=== PATIENT | female | born 1980 | race Caucasian/White ===

== ENCOUNTER 2018-10-10 16:07 | Emergency (ER) | payer OTHER ==
[2018-10-10 16:32] VITALS: BP 144/51
[2018-10-10] MEDS ORDERED: traMADol TAB* 50 MG PO ONE (16:35)
--- NOTE | 2018-10-10 16:40 | UC ---
Abdominal Pain Female HPI - HPI Summary HPI Summary: started w/ LLQ pain yesterday, slowly worsening. Denies any changes in stool, blood in urine, or n/v. 08/04/18 had laparoscopic surg for endometriosis, no complications. - History of Current Complaint Chief Complaint: UCAbdominalPain Stated Complaint: ABDOMINAL PAIN Hx Obtained From: Patient Hx Last Menstrual Period: 09/07/2018 Onset/Duration: Sudden Onset Pain Intensity: 10 Pain Scale Used: 0-10 Numeric Location: Discrete At: LLQ Radiates to: Flank Character: Aching, Sharp Aggravating Factor(s): Nothing Alleviating Factor(s): Nothing, OTC Analgesics - tried ibu but no relief. Associated Signs and Symptoms: Positive: Dizzy. Negative: Diaphoresis, Fever, Cough, Blood in Stool, Nausea, Vomiting Allergies/Adverse Reactions: Allergies Allergy/AdvReac Type Severity Reaction Status Date / Time amoxicillin Allergy Hives Verified 10/10/18 17:42 aspirin Allergy See Comment Verified 10/10/18 17:42 Estrogens Allergy Swelling Verified 10/10/18 17:42 Penicillins Allergy Hives Verified 10/10/18 17:42 LATEX Allergy Swelling Uncoded 10/10/18 17:42 P[place] TREE Allergy See Comment Uncoded 10/10/18 17:42 PINE TREES Allergy NOSE BLEEDS Uncoded 10/10/18 17:42 Home Medications: Home Medications Bcp 1 tab PO DAILY 10/10/18 [History] Ibuprofen TAB* [Motrin TAB* 800 MG] 800 mg PO Q6H 10/10/18 [History Confirmed ] PMH/Surg Hx/FS Hx/Imm Hx - Additional Past Medical History Additional PMH: endometriosis Previously Healthy: Yes - Surgical History Surgical History: Yes Surgery Procedure, Year, and Place: 2011-ELBOW NERVE SURGERY-LEFT. 2012- RIGHT ELBOW SURGERY. August 07 - Laprascopic adominal surgery Sep - Family History Known Family History: Positive: Hypertension, Respiratory Disease - Social History Alcohol Use: Occasionally Substance Use Type: None Smoking Status (MU): Heavy Every Day Tobacco Smoker Type: Cigarettes Amount Used/How Often: 1/2 PPD Review of Systems All Other Systems Reviewed And Are Negative: Yes Constitutional: Positive: Negative. Negative: Fever, Chills Gastrointestinal: Positive: Abdominal Pain. Negative: Vomiting, Diarrhea, Nausea Genitourinary: Negative: Dysuria Neurological: Positive: Other - dizzy w/ pain. Negative: Headache, Weakness Physical Exam Triage Information Reviewed: Yes Appearance: Pain Distress Vital Signs: Initial Vital Signs Temp 99.2 F 10/10/18 16:29 Pulse 90 10/10/18 16:29 Resp 18 10/10/18 16:29 BP 144/51 10/10/18 16:29 Pulse Ox 100 10/10/18 16:29 Vital Signs Reviewed: Yes Neck: Positive: Supple, Nontender, No Lymphadenopathy Respiratory Exam: Normal Cardiovascular Exam: Normal Abdomen Description: Positive: Nontender, Soft. Negative: CVA Tenderness (R), CVA Tenderness (L), Distended, Guarding, Pulsatile Mass Neurological: Positive: Alert Skin: Negative: Rashes Abd Pain Female Course/Dx - Course Course Of Treatment: LLQ pain but no acute abdomen. OF note she has laparoscopic surgery in 08/2018 for endometriosis, no complications. Given degree of pain she is being sent to ED for disla evaluation. Vitals good, urine hcg neg today. She is not tachycardic and we should r/o other etiologies. - Differential Dx/Diagnosis Differential Diagnosis: Diverticulitis, Ovarian Cyst, Urinary Tract Infection, Other - tubal Provider Diagnosis: Left lower quadrant pain Discharge - Sign-Out/Discharge Documenting (check all that apply): Patient Departure All imaging exams completed and their final reports reviewed: No Studies - Discharge Plan Condition: Good Disposition: HOME-RECOMMEND TO ED Patient Education Materials: Acute Abdominal Pain (ED) Forms: *Work Release Referrals: Fany Tracy NP [Primary Care Provider] - Additional Instructions: Because we cannot rule out all the causes of your pain I strongly recommend you go to the ED for disla evaluation. - Billing Disposition and Condition Condition: GOOD Disposition: Home-Recommend to ED
== END 2018-10-10 17:05 | disposition home health service (06) ==
LOC: UCEAST 16:07
DX: R10.32 Left lower quadrant pain (principal); R42 Dizziness and giddiness; F17.210 Nicotine dependence, cigarettes, uncomplicated; Z88.0 Allergy status to penicillin; Z88.8 Allergy status to other drugs, medicaments and biological substances; Z91.040 Latex allergy status; Z91.09 Other allergy status, other than to drugs and biological substances
CPT/HCPCS: 84702; 99212; A9270-GY; G0463

== ENCOUNTER 2018-10-10 17:28 | Emergency (ER) | payer OTHER ==
--- OUTSIDE RECORDS SUMMARY | 2018-10-10 17:50 | XMS REPORT | Continuity of Care Document ---
:1980 External Reference #:[id number] Author Name Catie Browne Care Team Providers Name Role Phone Siva Dorado III, MD Primary Care Physician Unavailable Payers Type Date Identification Numbers Payment Provider Subscriber Policy Number: [id number] [facility] Ev Song PayID: [id number] [address] [place] [address] Effective: 2010 Policy Number: [id number] [facility] Ev Song Onset: 2010 Group Number: [id number] [address] [address] PayID: [place] [address] Expires: 2016 Policy Number: [id number] [facility] Ev Song Onset: 2010 Group Number: [id number] [address] [address] PayID: [place] [address] Advance Directives Description No Information Available Problems Date Description Provider Status Onset: 10/07/2018 Lesion of ulnar nerve Janak Myrick M.D. Active Onset: 07/18/2018 Dizziness and giddiness Janak Myrick M.D. Active Onset: 07/18/2018 Skin sensation disturbance Janak Myrick M.D. Active Onset: 07/18/2018 Headache Janak Myrick M.D. 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 (10 or fewer Began age 18 cigarettes/day) Smoking Status Reviewed: 10/07/18 Light tobacco smoker 1/2 ppd; max 1 ppd. (10 or fewer Began age 18 cigarettes/day) Exercise Exercises sporadically Type/Frequency Allergies, Adverse Reactions, Alerts Date Description Reaction Status Severity Comments 09/06/2017 Penicillins Active hives 09/06/2017 Aspirin Active nose bleeds 09/06/2017 Latex Active swelling 08/04/2013 NKDA Inactive Medications Medication Date Status Form Strength Qnty SIG Indications Ordering Provider Proair HFA Active Aerosol 108(90Base 1units 2 puffs J06.9 Siva E. 018 ) mcg/Act by candice Dorado four Hesham times a day as needed Ibuprofen Active Tablets 800mg 100tab 1 by Ev 014 s candice Porter M.D. three times a day as needed Tylenol Active Tablets 325mg as needed Unknown 000 Diclofenac Hx Tablets 50mg 60tabs take one G56.22 Ev Sodium 016 - DR tablet by Hesham Porter mouth 017 twice a day Electrode Pads Hx 50unit Ev For TENS Unit 014 - radha Porter M.D. 018 Tramadol Hx Tablets 37.5-325mg 30tabs 1-2 Ev Hydrochloride/ 014 - tablets Hesham Porter Acetaminophen every 6 018 hours as needed pain No Active Hx Unknown Medications 013 - 014 Arrey Hx Tablets 5-325mg 30tabs 1-2 po Ev 013 - q4-6 prn Hesham Porter pain 013 No Active Hx Unknown Medications 013 - 013 Medications Administered in Office Medication Date Status Form Strength Qnty SIG Indications Ordering Provider Depomedrol Administered Injection Janee 40MG 017 Bitting, RPA-C Depomedrol Administered Injection Ev 40MG Jeancarlos Porter M.D. Depomedrol Administered Injection Ev 40MG Jeancarlos Porter M.D. Depomedrol Administered Injection Ev 80MG 015 Hesham Porter Depomedrol Administered Injection Ev 80MG 015 Hesham Porter Depomedrol Administered Injection Ev 80MG 015 Hesham Porter Immunizations Description No Information Available Vital Signs Date Vital Result Comment 10/07/2018 8:01am Height 63 inches 5'3" Weight 130.38 lb Heart Rate 72 /min BP Systolic 124 mmHg BP Diastolic 74 mmHg BMI (Body Mass Index) 23.1 kg/m2 07/18/2018 8:12am Height 63 inches 5'3" Weight 134.00 lb BP Systolic 126 mmHg BP Diastolic 88 mmHg BMI (Body Mass Index) 23.7 kg/m2 11/07/2017 8:04am Height 63 inches 5'3" Weight 132.00 lb Heart Rate 73 /min Respiratory Rate 15 /min Pain Level 6 BMI (Body Mass Index) 23.4 kg/m2 09/20/2017 7:55am Height 63 inches 5'3" Weight 128.00 lb Heart Rate 62 /min Respiratory Rate 14 /min Body Temperature 98.5 F Pain Level 3 BMI (Body Mass Index) 22.7 kg/m2 09/06/2017 3:24pm Height 63 inches 5'3" Weight 128.00 lb Heart Rate 53 /min BP Systolic Sitting 115 mmHg BP Diastolic Sitting 75 mmHg Body Temperature 98.6 F O2 % BldC Oximetry 98 % BMI (Body Mass Index) 22.7 kg/m2 08/09/2017 8:03am Height 63 inches 5'3" Weight 135.00 lb BP Systolic 118 mmHg BP Diastolic 70 mmHg Body Temperature 98.1 F Pain Level 4 BMI (Body Mass Index) 23.9 kg/m2 06/28/2017 8:01am Height 63 inches 5'3" Weight 135.00 lb Heart Rate 68 /min BP Systolic 114 mmHg BP Diastolic 68 mmHg Body Temperature 98.6 F Pain Level 5 BMI (Body Mass Index) 23.9 kg/m2 05/17/2017 3:40pm Height 63 inches 5'3" Weight 135.00 lb Respiratory Rate 14 /min Pain Level 4 BMI (Body Mass Index) 23.9 kg/m2 04/05/2017 8:11am Height 63 inches 5'3" Weight 135.00 lb Heart Rate 64 /min BP Systolic 110 mmHg BP Diastolic 74 mmHg Body Temperature 97.9 F Pain Level 4 BMI (Body Mass Index) 23.9 kg/m2 02/22/2017 11:28am Height 63 inches 5'3" Weight 139.00 lb BP Systolic 130 mmHg BP Diastolic 84 mmHg Body Temperature 98.4 F Pain Level 6 BMI (Body Mass Index) 24.6 kg/m2 01/11/2017 3:31pm Height 63 inches 5'3" Weight 139.00 lb Heart Rate 67 /min BP Systolic 133 mmHg BP Diastolic 84 mmHg Body Temperature 98.6 F BMI (Body Mass Index) 24.6 kg/m2 11/29/2016 3:29pm Height 63 inches 5'3" Weight 139.00 lb Heart Rate 72 /min BP Systolic 100 mmHg BP Diastolic 72 mmHg Respiratory Rate 16 /min Pain Level 7 BMI (Body Mass Index) 24.6 kg/m2 10/11/2016 2:56pm Height 63 inches 5'3" Weight 139.00 lb weighed today Heart Rate 64 /min BP Systolic 119 mmHg BP Diastolic 82 mmHg Respiratory Rate 16 /min Pain Level 3 BMI (Body Mass Index) 24.6 kg/m2 08/30/2016 1:24pm Height 63 inches 5'3" Weight 126.00 lb Heart Rate 60 /min BP Systolic 120 mmHg BP Diastolic 75 mmHg BMI (Body Mass Index) 22.3 kg/m2 07/20/2016 8:14am Height 63 inches 5'3" Weight 126.00 lb Pain Level 5 BMI (Body Mass Index) 22.3 kg/m2 06/08/2016 1:11pm Height 63 inches 5'3" Weight 126.00 lb BP Systolic Sitting 126 mmHg BP Diastolic Sitting 78 mmHg BMI (Body Mass Index) 22.3 kg/m2 05/03/2016 3:16pm Height 63 inches 5'3" Weight 124.00 lb Pain Level 4 BMI (Body Mass Index) 22.0 kg/m2 03/20/2016 8:49am Height 63 inches 5'3" Weight 124.00 lb Pain Level 4 BMI (Body Mass Index) 22.0 kg/m2 02/02/2016 4:12pm Height 63 inches 5'3" Weight 124.00 lb Heart Rate 60 /min BP Systolic Sitting 116 mmHg BP Diastolic Sitting 70 mmHg Respiratory Rate 16 /min Pain Level 4 BMI (Body Mass Index) 22.0 kg/m2 12/22/2015 4:16pm Height 63 inches 5'3" Weight 124.00 lb Respiratory Rate 16 /min Pain Level 1 BMI (Body Mass Index) 22.0 kg/m2 11/17/2015 4:25pm Height 63 inches 5'3" Weight 129.00 lb Pain Level 4 BMI (Body Mass Index) 22.8 kg/m2 10/07/2015 4:17pm Height 63.25 inches 5'3.25" Weight 129.00 lb Pain Level 6 BMI (Body Mass Index) 22.7 kg/m2 07/21/2015 3:55pm Heart Rate 68 /min BP Systolic Sitting 136 mmHg BP Diastolic Sitting 84 mmHg 06/09/2015 8:54am Heart Rate 80 /min BP Systolic Sitting 128 mmHg BP Diastolic Sitting 78 mmHg 04/28/2015 9:08am Heart Rate 68 /min BP Systolic Sitting 124 mmHg BP Diastolic Sitting 78 mmHg 03/17/2015 8:58am Heart Rate 64 /min BP Systolic Sitting 128 mmHg BP Diastolic Sitting 82 mmHg 02/03/2015 8:51am Heart Rate 76 /min BP Systolic Sitting 124 mmHg BP Diastolic Sitting 84 mmHg 12/23/2014 8:46am Heart Rate 68 /min BP Systolic Sitting 124 mmHg BP Diastolic Sitting 72 mmHg 11/18/2014 9:04am Heart Rate 78 /min BP Systolic Sitting 122 mmHg BP Diastolic Sitting 78 mmHg 10/07/2014 3:51pm Heart Rate 78 /min BP Systolic Sitting 120 mmHg BP Diastolic Sitting 78 mmHg 08/26/2014 11:10am Heart Rate 81 /min BP Systolic Sitting 128 mmHg BP Diastolic Sitting 80 mmHg 07/08/2014 3:49pm Heart Rate 70 /min BP Systolic Sitting 122 mmHg BP Diastolic Sitting 76 mmHg 06/03/2014 3:51pm Heart Rate 78 /min BP Systolic Sitting 120 mmHg BP Diastolic Sitting 76 mmHg 05/06/2014 3:46pm Heart Rate 72 /min BP Systolic Sitting 122 mmHg BP Diastolic Sitting 80 mmHg 03/25/2014 10:59am Heart Rate 72 /min BP Systolic Sitting 120 mmHg BP Diastolic Sitting 78 mmHg 02/18/2014 11:06am Heart Rate 76 /min BP Systolic Sitting 122 mmHg BP Diastolic Sitting 78 mmHg 01/05/2014 10:43am Heart Rate 78 /min BP Systolic Sitting 120 mmHg BP Diastolic Sitting 80 mmHg 06/09/2013 9:55am Height 64 inches 5'4" Weight 130.00 lb Heart Rate 78 /min BP Systolic Sitting 120 mmHg BP Diastolic Sitting 76 mmHg BMI (Body Mass Index) 22.3 kg/m2 03/12/2013 11:42am Height 64 inches 5'4" Weight 130.00 lb Heart Rate 78 /min BP Systolic 120 mmHg BP Diastolic 78 mmHg BMI (Body Mass Index) 22.3 kg/m2 Results Test Date Facility Test Result H/L Range Note CBC No Diff 02/15/2018 [facility] White Blood 8.4 10^3/uL N 3.5-10.[address] [place] [address] [phone] Red Blood Count 4.69 10^6/uL N 4.00-5.40 Hemoglobin 14.6 g/dL N 12.0-16.0 Hematocrit 42 % N 35-47 Mean Corpuscular Volume 90 fL N 80-97 Mean Corpuscular Hemoglobin 31 pg N 27-31 Mean Corpuscular HGB Conc 35 g/dL N 31-36 Red Cell Distribution Width 13 % N 10.5-15 Platelet Count 236 10^3/uL N 150-450 Mean Platelet Volume 8.1 um3 N 7.4-10.4 CBC Auto Diff 11/17/2017 [facility] White Blood 6.6 10^3/uL N 3.5-10.[address] [place] [address] [phone] Red Blood Count 4.66 10^6/uL N 4.0-5.4 Hemoglobin 14.3 g/dL N 12.0-16.0 Hematocrit 42 % N 35-47 Mean Corpuscular Volume 90 fL N 80-97 Mean Corpuscular Hemoglobin 31 pg N 27-31 Mean Corpuscular HGB Conc 34 g/dL N 31-36 Red Cell Distribution Width 14 % N 10.5-15 Platelet Count 219 10^3/uL N 150-450 Mean Platelet Volume 8 um3 N 7.4-10.4 Abs Neutrophils 4.0 10^3/uL N 1.5-7.7 Abs Lymphocytes 2.0 10^3/uL N 1.0-4.8 Abs Monocytes 0.5 10^3/uL N 0-0.8 Abs Eosinophils 0.1 10^3/uL N 0-0.6 Abs Basophils 0 10^3/uL N 0-0.2 Abs Nucleated RBC 0 10^3/uL Granulocyte % 59.7 % N 38-83 Lymphocyte % 30.6 % N 25-47 Monocyte % 8.3 % High 0-7 Eosinophil % 1.1 % N 0-6 Basophil % 0.3 % N 0-2 Nucleated Red Blood Cells % 0.1 Lipid Profile 11/17/2017 [facility] Triglycerides 87 mg/dL 1 (Trig/Chol/HDL) [address] [place] [address] [phone] Cholesterol 148 mg/dL 2 HDL Cholesterol 62.7 mg/dL 3 LDL Cholesterol 68 mg/dL 4 Basic Metabolic Panel 11/17/2017 [facility] Sodium 138 mmol/L N 133-145 [address] [place] [address] [phone] Potassium 4.3 mmol/L N 3.5-5.0 Chloride 105 mmol/L N 101-111 Co2 Carbon Dioxide 27 mmol/L N 22-32 Anion Gap 6 mmol/L N 2-11 Glucose 88 mg/dL N 70-100 Blood Urea Nitrogen 12 mg/dL N 6-24 Creatinine 0.71 mg/dL N 0.51-0.95 BUN/Creatinine Ratio 16.9 N 8-20 Calcium 9.7 mg/dL N 8.6-10.3 Egfr Non- 92.6 >60 Egfr 119.1 >60 5 Laboratory test 09/06/2017 [facility] Rapid Strep Negative Negative 6 finding [address] [facility] [place] [address] [phone] Laboratory test 09/06/2017 [facility] Rapid Strep A SEE RESULT 7, [address] [place] [address] [phone] Desirable: <150 Borderline High: 150-199 High: 200-499 Very High: >500 2 Desirable: <200 Borderline High: 200-239 High: >239 3 Low: <40 Desirable: 40-60 High: >60 4 Desirable: <100 Near Optimal: 100-129 Borderline High: 130-159 High: 160-189 Very High: >189 5 Because ethnic data is not always readily available, this report includes an eGFR for both -Americans and non- Americans. The National Kidney Disease Education Program (NKDEP) does not endorse the use of the MDRD equation for patients that are not between the ages of 18 and 70, are , have extremes of body size, muscle mass, or nutritional status, or are non- or non-. According to the National Kidney Foundation, irrespective of diagnosis, the stage of the disease is based on the level of kidney function: Stage Description GFR(mL/min/1.73 m(2)) 1 Kidney damage with normal or decreased GFR 90 2 Kidney damage with mild decrease in GFR 60-89 3 Moderate decrease in GFR 30-59 4 Severe decrease in GFR 15-29 5 Kidney failure <15 (or dialysis) 6 Excellence Consultant: [id number] SEE RESULT BELOW Name: JOSEMIRIAMEV : [address]: Siva Dorado III, MD Acct: [id number] Unit: [id number] AGE: 36 Location: [facility] Re09/06/17 SEX: F Status: REG REF SPEC: [id number] JUAN PABLO: 09/06/17-[address]: Siva Dorado III, MD REQ: [id number] RECD: 09/06/17610 STATUS: COMP _ SOURCE: QASIM SPDESC: ORDERED: Strep A Request COMMENTS: [id number] Procedure Result Reported Site Rapid Strep A Request Final 09/06/171956 ML Specimen received for Rapid Strep A Molecular testing * ML - MAIN LAB (PSC1) . END OF REPORT * ML=Testing performed at Main Lab DEPARTMENT OF PATHOLOGY, [address] [place] [address] Travis Cardenas M.D. Director [facility] # [id number] Procedures Date Code Description Status 01/11/2017 Injection Single Tendon Origin/Insertion Completed 05/03/201644625 Inject Tendon Sheath Or Ligament Aponeurosis Eg Plantar Completed Fascia 11/17/201573319 Inject Tendon Sheath Or Ligament Aponeurosis Eg Plantar Completed Fascia 06/09/201562087 Inject Tendon Sheath Or Ligament Aponeurosis Eg Plantar Completed Fascia 03/17/201568767 Inject Tendon Sheath Or Ligament Aponeurosis Eg Plantar Completed Fascia 11/18/2014 44502 Rad Exam; Wrist, Comp, Min 3 Views Completed 11/18/2014 54407 Rad Exam; Wrist, Comp, Min 3 Views Completed 11/18/2014 02425 Rad Exam; Wrist Limited, 2 Views Completed 11/18/201431323 Inject Tendon Sheath Or Ligament Aponeurosis Eg Plantar Completed Fascia 11/18/201404832 Inject Tendon Sheath Or Ligament Aponeurosis Eg Plantar Completed Fascia 06/20/201314038 Neuroplasty &/Or Transposition; Ulnar Nerve AT Elbow Completed 06/20/2013 75296 Neuroplasty &/Or Transposition; Ulnar Nerve AT Elbow Completed Encounters Type Date Location Provider Dx Diagnosis Office Visit 10/07/2018 [place] Toney Myrick M.D. R51 Headache 8:00a Services Of [facility] R20.2 Paresthesia of skin G56.22 Lesion of ulnar nerve, left upper limb G56.21 Lesion of ulnar nerve, right upper limb Office Visit 07/18/2018 8:30a [place] Toney Myrick R51 Headache Services Of Chirag Dahl R20.2 Paresthesia of skin R42 Dizziness and giddiness Office Visit 09/20/2017 9:00a Orthopedic Janee Bradley, G56.22 Lesion of Services Of [facility]. RPA-C ulnar nerve, left upper limb G56.22 Lesion of ulnar nerve, left upper limb G56.21 Lesion of ulnar nerve, right upper limb G56.21 Lesion of ulnar nerve, right upper limb Office Visit 09/06/2017 3:00p [facility] Internal Siva Beard J06.9 Acute upper Medicine - Hesham Dorado respiratory [place] infection, unspecified D64.9 Anemia, unspecified Z13.220 Encounter for screening for lipoid disorders Z13.1 Encounter for screening for diabetes mellitus Office Visit 08/09/2017 Orthopedic Ev M65.832 Other synovitis and 8:15a Services Of Hesham Porter tenosynovitis, left C.M.A. forearm G56.23 Lesion of ulnar nerve, bilateral upper limbs M65.831 Other synovitis and tenosynovitis, right forearm Office Visit 06/28/2017 Orthopedic Ev M65.832 Other synovitis and 8:00a Services Of Hesham Porter tenosynovitis, left C.M.A. forearm M65.831 Other synovitis and tenosynovitis, right forearm G56.23 Lesion of ulnar nerve, bilateral upper limbs Office Visit 05/17/2017 Orthopedic Ev M65.832 Other synovitis and 3:30p Services Of Hesham Porter tenosynovitis, left C.M.A. forearm M65.831 Other synovitis and tenosynovitis, right forearm G56.23 Lesion of ulnar nerve, bilateral upper limbs Office Visit 04/05/2017 Orthopedic Ev M65.832 Other synovitis and 8:00a Services Of Hesham Porter tenosynovitis, left C.M.A. forearm M65.831 Other synovitis and tenosynovitis, right forearm G56.23 Lesion of ulnar nerve, bilateral upper limbs G56.22 Lesion of ulnar nerve, left upper limb Office Visit 02/22/2017 Orthopedic Ev M65.832 Other synovitis and 11:30a Services Of Hesham Porter tenosynovitis, left C.M.A. forearm M65.831 Other synovitis and tenosynovitis, right forearm G56.23 Lesion of ulnar nerve, bilateral upper limbs G56.22 Lesion of ulnar nerve, left upper limb Office Visit 11/29/2016 Orthopedic Ev M65.832 Other synovitis and 3:30p Services Of Hesham Porter tenosynovitis, left C.M.A. forearm M65.831 Other synovitis and tenosynovitis, right forearm Office Visit 10/11/2016 3:00p Clarisa Porter G56.23 Lesion of ulnar Services Of [place] nerve, C.M.A. bilateral upper limbs M65.832 Other synovitis and tenosynovitis, left forearm M65.831 Other synovitis and tenosynovitis, right forearm Office Visit 08/30/2016 1:10p Clarisa Porter G56.22 Lesion of Services Of Renan Dahl ulnar nerve, left upper limb M65.832 Other synovitis and tenosynovitis, left forearm M65.831 Other synovitis and tenosynovitis, right forearm G56.21 Lesion of ulnar nerve, right upper limb Office Visit 07/20/2016 8:20a Clarisa Porter G56.22 Lesion of Services Of C.M.A. M.D. ulnar nerve, left upper limb M65.832 Other synovitis and tenosynovitis, left forearm M65.831 Other synovitis and tenosynovitis, right forearm G56.21 Lesion of ulnar nerve, right upper limb G56.23 Lesion of ulnar nerve, bilateral upper limbs Office Visit 06/08/2016 1:20p Orthopedic Ev Porter G56.22 Lesion of Services Of Renan Dahl ulnar nerve, left upper limb M65.832 Other synovitis and tenosynovitis, left forearm M65.831 Other synovitis and tenosynovitis, right forearm G56.21 Lesion of ulnar nerve, right upper limb Office Visit 03/20/2016 Orthopedic Ev M65.832 Other synovitis and 8:50a Services Of Hesham Porter tenosynovitis, left C.M.A. forearm G56.22 Lesion of ulnar nerve, left upper limb M65.831 Other synovitis and tenosynovitis, right forearm G56.21 Lesion of ulnar nerve, right upper limb G56.21 Lesion of ulnar nerve, right upper limb M65.832 Other synovitis and tenosynovitis, left forearm G56.22 Lesion of ulnar nerve, left upper limb M65.831 Other synovitis and tenosynovitis, right forearm Office Visit 02/02/2016 Orthopedic Ev M65.832 Other synovitis and 4:00p Services Of Hesham Porter tenosynovitis, left C.M.A. forearm G56.21 Lesion of ulnar nerve, right upper limb G56.22 Lesion of ulnar nerve, left upper limb Office Visit 12/22/2015 Orthopedic Ev M65.832 Other synovitis and 4:20p Services Of Hesham Porter tenosynovitis, left C.M.A. forearm G56.21 Lesion of ulnar nerve, right upper limb G56.22 Lesion of ulnar nerve, left upper limb Office Visit 10/07/2015 Orthopedic Ev M65.832 Other synovitis and 4:15p Services Of Hesham Porter tenosynovitis, left C.M.A. forearm G56.21 Lesion of ulnar nerve, right upper limb G56.22 Lesion of ulnar nerve, left upper limb M65.831 Other synovitis and tenosynovitis, right forearm Office Visit 08/26/2015 Orthopedic Ev M65.832 Other synovitis and 10:10a Services Of Hesham Porter tenosynovitis, left C.M.A. forearm G56.21 Lesion of ulnar nerve, right upper limb G56.22 Lesion of ulnar nerve, left upper limb M65.831 Other synovitis and tenosynovitis, right forearm Office Visit 07/21/2015 Orthopedic Ev M65.832 Other synovitis and 4:00p Services Of Chirag Porter M.D. tenosynovitis, left AT [place] forearm G56.21 Lesion of ulnar nerve, right upper limb G56.22 Lesion of ulnar nerve, left upper limb M65.831 Other synovitis and tenosynovitis, right forearm Office Visit 04/28/2015 Orthopedic Ev 727.05 Tenosynovitis Hand 9:00a Services Of Chirag Porter M.D. & Wrist Other AT [place] 354.2 Lesion Ulnar Nerve Office Visit 02/03/2015 Orthopedic Ev 727.05 Tenosynovitis Hand 9:00a Services Of Chirag Porter M.D. & Wrist Other AT [place] 354.2 Lesion Ulnar Nerve 719.43 Pain Joint Forearm Office Visit 12/23/2014 Orthopedic Ev 727.05 Tenosynovitis Hand 9:00a Services Of Chirag Porter M.D. & Wrist Other AT [place] 727.05 Tenosynovitis Hand & Wrist Other 719.43 Pain Joint Forearm 719.43 Pain Joint Forearm 354.2 Lesion Ulnar Nerve 354.2 Lesion Ulnar Nerve Office Visit 11/18/2014 Orthopedic Ev 727.05 Tenosynovitis Hand 8:30a Services Of Chirag Porter M.D. & Wrist Other AT [place] 727.05 Tenosynovitis Hand & Wrist Other 719.43 Pain Joint Forearm 727.05 Tenosynovitis Hand & Wrist Other 354.2 Lesion Ulnar Nerve 354.2 Lesion Ulnar Nerve 719.43 Pain Joint Forearm 719.43 Pain Joint Forearm Office Visit 10/07/2014 Orthopedic Ev 727.05 Tenosynovitis Hand 4:00p Services Of Chirag Porter M.D. & Wrist Other AT [place] 354.2 Lesion Ulnar Nerve Office Visit 08/26/2014 10:00a Orthopedic Taylor Bo.2 Lesion Ulnar Services Of Clinical Application Specialist AT [facility] Nerve [place] 727.05 Tenosynovitis Hand & Wrist Other Office Visit 07/08/2014 3:45p Orthopedic Ev Porter 354.2 Lesion Ulnar Services Of Clinical Application Specialist AT [facility] Nerve [place] 727.05 Tenosynovitis Hand & Wrist Other Office Visit 06/03/2014 3:45p Orthopedic Ev Porter 354.2 Lesion Ulnar Services Of Clinical Application Specialist AT [facility] Nerve [place] 727.05 Tenosynovitis Hand & Wrist Other Office Visit 05/06/2014 4:00p Orthopedic Taylor Bo.2 Lesion Ulnar Services Of Clinical Application Specialist AT [facility] Nerve John Paul 727.05 Tenosynovitis Hand & Wrist Other Office Visit 03/25/2014 11:00a Orthopedic Taylor Bo.2 Lesion Ulnar Services Of Clinical Application Specialist AT [facility] Nerve [place] 727.05 Tenosynovitis Hand & Wrist Other Office Visit 02/18/2014 11:00a Orthopedic Taylor Bo.2 Lesion Ulnar Services Of Clinical Application Specialist AT [facility] Nerve [place] 727.05 Tenosynovitis Hand & Wrist Other Office Visit 01/05/2014 10:30a Orthopedic Taylor Bo.2 Lesion Ulnar Services Of Clinical Application Specialist AT [facility] Nerve [place] 727.05 Tenosynovitis Hand & Wrist Other Office Visit 12/03/2013 2:00p Orthopedic Taylor Bo.2 Lesion Ulnar Services Of Clinical Application Specialist AT [facility] Nerve [place] 727.05 Tenosynovitis Hand & Wrist Other Office Visit 10/29/2013 10:00a Orthopedic Taylor Bo.2 Lesion Ulnar Services Of Clinical Application Specialist AT [facility] Nerve [place] 727.05 Tenosynovitis Hand & Wrist Other Office Visit 04/23/2013 Orthopedic Ev Vazquez.2 Lesion Ulnar Nerve 9:00a Services Of Chirag Porter M.D. AT [place] Office Visit 03/12/2013 Orthopedic Ev 727.05 Tenosynovitis Hand 11:45a Services Of Chirag Porter M.D. & Wrist Other AT [place] 354.2 Lesion Ulnar Nerve Office Visit 02/05/2013 Orthopedic Ev 727.05 Tenosynovitis Hand 11:30a Services Of Chirag Porter M.D. & Wrist Other AT [place] 354.2 Lesion Ulnar Nerve Office Visit 12/23/2012 10:00a Orthopedic Ev Porter 354.2 Lesion Ulnar Services Of [facility] AT [facility] Nerve [place] 727.05 Tenosynovitis Hand & Wrist Other Office Visit 11/11/2012 9:30a Orthopedic Ev Porter 354.2 Lesion Ulnar Services Of [facility] AT D Nerve [place] 354.2 Lesion Ulnar Nerve 727.05 Tenosynovitis Hand & Wrist Other 727.05 Tenosynovitis Hand & Wrist Other Plan of Treatment Future Appointment(s):01/20/2019 8:00 am - Janak Myrick M.D. at [place] [facility]10/07/2018 - Janak Myrick M.D.R51 HeadacheFollow up:Follow up in 3 monthsRecommendations:Riboflavin (Vitamin B2) Take 400mg every dayR20.2 Paresthesia of skinG56.22 Lesion of ulnar nerve, left upper limbNew Orders:EMG w/Nerve Conduct Study, Upper, Ordered: 10/07/18G56.21 Lesion of ulnar nerve, right upper limb
--- OUTSIDE RECORDS SUMMARY | 2018-10-10 17:50 | XMS REPORT ---
:[address] [facility] Address [address] [place] [address] Care Team Providers Name Role Phone Alejandro Baeza Unavailable Unavailable PROBLEMS Type Condition ICD9-CM Code [id number] Code Onset Condition SNOMED Code Dates Status Problem Pelvic and R10.2 Active 247977229 perineal pain Problem Mitt[place]chmerz N94.0 Active 81445256 Problem Excessive and N92.0 Active 597770206 frequent menstruation with regular cycle Problem Tobacco abuse Z71.6 Active 405984482 counseling Problem Family history of Z80.3 Active 424187339 malignant neoplasm of breast Problem Other fatigue R53.83 Active 03702881 Problem Dysthymic disorder F34.1 Active 32184907 Problem Anal spasm K59.4 Active 39116927 Problem Female N97.9 Active 2296233 infertility, unspecified Problem Excessive and N92.0 Active 655532067 frequent menstruation Problem Dysmenorrhea, N94.6 Active 936159806 unspecified Problem Endometriosis, N80.9 Active 304563657 unspecified Problem Endometriosis of N80.3 Active 530731151 pelvic peritoneum ALLERGIES No Information ENCOUNTERS Encounter Location Date Diagnosis [facility] [address] [place] [address] Oct, [address] [place], [place] [id number] [facility] 103 Sep, OBGYN [place], [place] [id number] [facility] 103 Sep, OBGYN [place], [place] [id number] [facility] 103 Sep, OBGYN [place] [id number] [facility] 103 Sep, Anal spasm K59.4 ; Pelvic OBGYN [facility], and perineal pain R10.2 ; [place] [id number] Dysmenorrhea, unspecified N94.6 ; Endometriosis, unspecified N80.9 ; Endometriosis of pelvic peritoneum N80.3 ; Female infertility, unspecified N97.9 and Frequency of micturition R35.[address] [facility] [address] Aug, OBGYN [place], [place] [id number] [facility] 103 Aug, [facility] [id number] [facility] [address] [place] [address] Aug, Pelvic and perineal pain [address] [place], R10.2 ; Dysmen[place]hea, [place] [id number] unspecified N94.6 ; Endometriosis, unspecified N80.9 ; Endometriosis of pelvic peritoneum N80.3 ; Female infertility, unspecified N97.9 and Embryonic cyst of fallopian tube Q50.4 [facility] [address] [place], Aug, Pelvic and perineal [facility] [place] [id number] R10.2 ; Dysmenorrhea, unspecified N94.6 ; Endometriosis, unspecified N80.9 ; Endometriosis of pelvic peritoneum N80.3 ; Female infertility, unspecified N97.9 and Embryonic cyst of fallopian tube Q50.4 [facility] [address] [place] [address] Jul, Excessive and frequent [address] [place], menstruation with regular [place] [id number] cycle N92.0 and Dysmenorrhea, unspecified N94.[address] [facility] 103 Mar, OBGYN [place], [place] [id number] [facility] [address] [place] [address] Mar, Excessive and frequent [address] [place], menstruation with regular [place] [id number] cycle N92.0 and Dysmenorrhea, unspecified N94.6 [place] [facility] 103 Feb, Excessive and frequent OBGYN [facility], menstruation N92.0 [place] [id number] [place] [facility] 103 Feb, OBGYN [facility], [place] [id number] [place] [facility] [address] [facility] Feb, Excessive and frequent [address] [place], menstruation with regular [place] [id number] cycle N92.0 [place] [facility] 103 Feb, Pelvic and perineal pain OBGYN [facility], R10.2 and Excessive and [place] [address] frequent menstruation with regular cycle N92.0 [place] [facility] 103 Feb, Excessive and frequent OBGYN [facility], menstruation with regular [place] [id number] cycle N92.0 and [place]chmerz N94.0 [place] [facility] [address] [facility] Feb, Encounter for Road [address] [place], gynecological examination [place] [id number] (general) (routine) with abnormal findings Z01.411 ; Encounter for screening for malignant neoplasm of cervix Z12.4 ; Pelvic and perineal pain R10.2 ; Encounter for screening for infections with a predominantly sexual mode of transmission Z11.3 ; Excessive and frequent menstruation with regular cycle N92.0 ; Dysthymic disorder F34.1 ; Other fatigue R53.83 ; Family history of malignant neoplasm of breast Z80.3 ; Encounter for screening mammogram for malignant neoplasm of breast Z12.31 and Tobacco abuse counseling Z71.6 IMMUNIZATIONS No Known Immunizations SOCIAL HISTORY Never Assessed REASON FOR REFERRAL FUNCTIONAL STATUS PLAN OF CARE VITAL SIGNS MEDICATIONS Medication Instructions Dosage Frequency Start Date End Date Duration Status Cytotec 200 mcg orally 1 tab at 1 tab(s) Sep, Active dinner night 2019 before procedure, 1 tab at bedtime night before procedure, 1 tab at 6 AM day of procedure PROCEDURES No Known procedures RESULTS No Results REASON FOR VISIT Cytotec Insurance Providers [facility] Member Patient Patient Patient Patient Patient Subscriber Subscriber Subscriber Group Insurance Plan Plan Plan Plan ID Relationship Address Phone Name Date of ID Name Date of No Type Insurance Insurance Insurance Coverage to Subscriber Address Phone Name Dates [employer] [phone] [employer] jayshree Carrera [id number] [place] [phone] [facility] [phone] [employer] [phone]- [employer] self Debi [id number] [place] [phone] [facility] 50 [phone] MEDICAL (GENERAL) HISTORY Type Description Date Medical History Anxiety Medical History Endometriosis Surgical History Bilateral Ulna nerve transposition 2012 Surgical History tonsillectomy 1984 Surgical History [place] teeth Hospitalization History Child
--- OUTSIDE RECORDS SUMMARY | 2018-10-10 17:50 | XMS REPORT ---
:1980 Author Organization [facility] Address [address] [place] [address] Care Team Providers Name Role Phone Alejandro Baeza Unavailable Unavailable PROBLEMS Type Condition ICD9-CM Code [id number] Code Onset Condition SNOMED Code Dates Status Problem Pelvic and R10.2 Active 493595508 perineal pain Problem Mittelschmerz N94.0 Active 71319869 Problem Excessive and N92.0 Active 161459893 frequent menstruation with regular cycle Problem Tobacco abuse Z71.6 Active 682928921 counseling Problem Family history of Z80.3 Active 706620267 malignant neoplasm of breast Problem Other fatigue R53.83 Active 40696643 Problem Dysthymic disorder F34.1 Active 97973878 Problem Anal spasm K59.4 Active 72633450 Problem Female N97.9 Active 1268830 infertility, unspecified Problem Excessive and N92.0 Active 767602042 frequent menstruation Problem Dysmenorrhea, N94.6 Active 432742465 unspecified Problem Endometriosis, N80.9 Active 065887233 unspecified Problem Endometriosis of N80.3 Active 438882527 pelvic peritoneum ALLERGIES No Information ENCOUNTERS Encounter Location Date Diagnosis [facility] [address] [place] [address] Oct, [address] [place], [place] [id number] [facility] 103 Sep, OBGYN [place], [place] [id number] [facility] 103 Sep, OBGYN [place], [place] [id number] [facility] 103 Sep, OBGYN [place], [place] [id number] [facility] 103 Sep, Anal spasm K59.4 ; Pelvic OBGYN [facility], and perineal pain R10.2 ; [place] [id number] Dysmenorrhea, unspecified N94.6 ; Endometriosis, unspecified N80.9 ; Endometriosis of pelvic peritoneum N80.3 ; Female infertility, unspecified N97.9 and Frequency of micturition R35.0 [facility] 103 Aug, OBGYN [place], [place] [id number] [facility] 103 Aug, OBGYN [place] [id number] [facility] [address] [place] [address] Aug, Pelvic and perineal pain Road [address] [place], R10.2 ; Dysmenorrhea, [place] [id number] unspecified N94.6 ; Endometriosis, unspecified N80.9 ; Endometriosis of pelvic peritoneum N80.3 ; Female infertility, unspecified N97.9 and Embryonic cyst of fallopian tube Q50.4 [facility] [address] [place], Aug, Pelvic and perineal pain [facility] [place] [id number] R10.2 ; Dysmenorrhea, unspecified N94.6 ; Endometriosis, unspecified N80.9 ; Endometriosis of pelvic peritoneum N80.3 ; Female infertility, unspecified N97.9 and Embryonic cyst of fallopian tube Q50.4 [facility] [address] [place] [address] Jul, Excessive and frequent [address] [place], menstruation with regular [place] [id number] cycle N92.0 and Dysmenorrhea, unspecified N94.6 [facility] 103 Mar, OBGYN [place], [place] [id number] [facility] [address] [place] [address] Mar, Excessive and frequent [address] [place], menstruation with regular [place] [id number] cycle N92.0 and Dysmenorrhea, unspecified N94.6 [place] [facility] 103 Feb, Excessive and frequent OBGYN [facility], menstruation N92.0 [place] [id number] [place] [facility] 103 Feb, OBGYN [facility], [place] [id number] [place] [facility] [address] [facility] Feb, Excessive and frequent [address] [place], menstruation with regular [place] [address] cycle N92.0 [place] [facility] 103 Feb, Pelvic and perineal pain OBGYN [facility], R10.2 and Excessive and [place] [address] frequent menstruation with regular cycle N92.0 [place] [facility] 103 Feb, Excessive and frequent OBGYN [facility], menstruation with regular [place] [id number] cycle N92.0 and [place]chmerz N94.0 [place] [facility] [address] [facility] 15 Feb, [address] [place], gynecological examination [place] [id number] (general) (routine) with abnormal findings Z01.411 ; [...] STATUS PLAN OF CARE VITAL SIGNS MEDICATIONS Unknown Medications PROCEDURES No Known procedures RESULTS No Results REASON FOR VISIT Work Note Insurance Providers [facility] Member Patient Patient Patient Patient Patient Subscriber Subscriber Subscriber Group Insurance Plan Plan Plan Plan ID Relationship Address Phone Name Date of ID Name Date of No Type Insurance Insurance Insurance Coverage to Subscriber Address Phone Name Dates [employer] [phone] [employer] self Debi [id number] [place] [id number] [place] [phone] [employer] [phone] [employer] self Debi [id number] [place] [phone] [place] [phone] MEDICAL (GENERAL) HISTORY Type Description Date Medical History Anxiety Medical History Endometriosis Surgical History Bilateral Ulna nerve transposition 2012 Surgical History tonsillectomy 1984 Surgical History [place] teeth Hospitalization History Child
--- OUTSIDE RECORDS SUMMARY | 2018-10-10 17:50 | XMS REPORT ---
:1980 Author Organization [facility] Address [address] [place] [address] Care Team Providers Name Role Phone Alejandro Baeza Unavailable Unavailable PROBLEMS Type Condition ICD9-CM Code [id number] Code Onset Condition SNOMED Code Dates Status Problem Pelvic and R10.2 Active 214184360 perineal pain Problem [place]elschmerz N94.0 Active 07919147 Problem Excessive and N92.0 Active 484531826 frequent menstruation with regular cycle Problem Tobacco abuse Z71.6 Active 341213727 counseling Problem Family history of Z80.3 Active 702547301 malignant neoplasm of breast Problem Other fatigue R53.83 Active 42321935 Problem Dysthymic disorder F34.1 Active 12486118 Problem Anal spasm K59.4 Active 32316302 Problem Female N97.9 Active 1898352 infertility, unspecified Problem Excessive and N92.0 Active 350122517 frequent menstruation Problem Dysmenorrhea, N94.6 Active 903942532 unspecified Problem Endometriosis, N80.9 Active 091620192 unspecified Problem Endometriosis of N80.3 Active 627717420 pelvic peritoneum ALLERGIES No Information ENCOUNTERS Encounter Location Date Diagnosis [facility] [address] [place] [address] Oct, [address] [place], [place] [id number] [facility] 103 Sep, OBGYN [place], [place] [id number] [facility] 103 Sep, OBGYN [place], [place] [id number] [facility] 103 Sep, OBGYN [place], [place] [id number] [facility] 103 Sep, Anal spasm K59.4 ; Pelvic OBGYN [facility], and perineal pain R10.2 ; [place] [id number] Dysmenorrhea, unspecified N94.6 ; Endometriosis, unspecified N80.9 ; Endometriosis of pelvic peritoneum N80.3 ; Female infertility, unspecified N97.9 and Frequency of micturition R35.0 [facility] 103 Aug, OBGYN [place], [place] [id number] [facility] 103 Aug, OBGYN [place] [id number] [facility] [address] [place] [address] Aug, Pelvic and perineal pain Road [address] [place], R10.2 ; Dysmenorrhea, [place] [id number] unspecified N94.6 ; Endometriosis, unspecified N80.9 ; Endometriosis of pelvic peritoneum N80.3 ; Female infertility, unspecified N97.9 and Embryonic cyst of fallopian tube Q50.4 [facility] [address] [place], Aug, Pelvic and perineal pain [facility] [place] [address] R10.2 ; Dysmenorrhea, unspecified N94.6 ; Endometriosis, unspecified N80.9 ; Endometriosis of pelvic peritoneum N80.3 ; Female infertility, unspecified N97.9 and Embryonic cyst of fallopian tube Q50.4 [facility] [address] [place] [address] Jul, Excessive and frequent [address] [place], menstruation with regular [place] [id number] cycle N92.0 and Dysmenorrhea, unspecified N94.6 [facility] 103 Mar, OBGYN [place], [place] [id number] [facility] [address] [place] [address] Mar, Excessive and frequent [address] [place], menstruation with regular [place] [address] cycle N92.0 and Dysmenorrhea, unspecified N94.6 [place] [facility] 103 Feb, Excessive and frequent OBGYN [facility], menstruation N92.0 [place] [id number] [place] [facility] 103 Feb, OBGYN [facility], [place] [id number] [place] [facility] [address] [facility] Feb, Excessive and frequent [address] [place], menstruation with regular [place] [id number] cycle N92.0 [place] [facility] 103 Feb, Pelvic and perineal pain OBGYN [facility], R10.2 and Excessive and [place] [address] frequent menstruation with regular cycle N92.0 [place] [facility] 103 Feb, Excessive and frequent OBGYN [facility], menstruation with regular [place] [address] cycle N92.0 and [place]chmerz N94.0 [place] [facility] [address] [facility] 15 Feb, [address] [place], gynecological examination [place] [id number] (general) (routine) with abnormal findings Z01.411 ; [...] procedures RESULTS No Results REASON FOR VISIT Liletta insertion ? pain medication - LMTCB 09/09/18 Insurance Providers [facility] Health Member Patient Patient Patient Patient Patient Subscriber Subscriber Subscriber Group Insurance Plan Plan Plan Plan ID Relationship Address Phone Name Date of ID Name Date of No Type Insurance Insurance Insurance Coverage to Subscriber Address Phone Name Dates [employer] [phone] [employer] self Debi [id number] [place] [phone] [place] [phone] [employer] [phone] [employer] self Debi [id number] [place] [id number] [place] [address] MEDICAL (GENERAL) HISTORY Type Description Date Medical History Anxiety Medical History Endometriosis Surgical History Bilateral Ulna nerve transposition 2012 Surgical History tonsillectomy 1983 Surgical History [place] teeth Hospitalization History Child
[2018-10-10 18:31] LABS: ABS Basophils 0 10^3/ul (0-0.2); ABS Eosinophils 0 10^3/ul (0-0.6); ABS Lymphocytes 2.5 10^3/ul (1.0-4.8); ABS Monocytes 0.5 10^3/ul (0-0.8); ABS Neutrophils 5.2 10^3/ul (1.5-7.7); ABS Nucleated RBC 0 10^3/ul; Eosinophil % 0.2 %; Hematocrit 44 % (35-47); Hemoglobin 14.7 g/dl (12.0-16.0); Mean Corpuscular HGB Conc 34 g/dl (31-36); Mean Corpuscular Hemoglobin 31 pg (27-31); Mean Corpuscular Volume 93 fL (80-97); Mean Platelet Volume 8.2 fL (7.4-10.4); Nucleated Red Blood Cells % 0; Platelet Count 232 10^3/ul (150-450); Red Blood Count 4.71 10^6/ul (4.00-5.40); Red Cell Distribution Width 14 % (10.5-15); White Blood Count 8.2 10^3/ul (3.5-10.8)
[2018-10-10 18:48] LABS: ALT 11 U/L (7-52); AST 14 U/L (13-39); Albumin 4.8 g/dL (3.2-5.2); Albumin/Globulin Ratio 2.2 (1-3); Alkaline Phosphatase 47 U/L (34-104); Anion Gap 6 mmol/L (2-11); Blood Urea Nitrogen 7 mg/dL (6-24); CO2 Carbon Dioxide 27 mmol/L (22-32); Calcium 9.9 mg/dL (8.6-10.3); Chloride 105 mmol/L (101-111); EGFR African American 113.3 (>60); EGFR Non-African American 93.6 (>60); Globulin 2.2 g/dL (2-4); Glucose 97 mg/dL (70-100); Potassium 3.9 mmol/L (3.5-5.0); Sodium 138 mmol/L (135-145)
[2018-10-10] MEDS ORDERED: Metoclopramide IV* 5 MG/ML 2 ML VIAL IV SLOW PU ONE (21:33)
[2018-10-10] MEDS ORDERED: NS 0.9% 1000 ML** 1,000 ML IV ONE (21:33)
[2018-10-10] MEDS ORDERED: Morphine VIAL* 10 MG/ML 1 ML VIAL IV ONE (21:33)
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
[2018-10-10 21:50] LABS: C Reactive Protein < 1.00 mg/L (<8.01)
[2018-10-10 21:57] LABS: HCG Pregnancy < 0.60 mIU/mL
[2018-10-10 22:08] LABS: Urine Appearance Clear; Urine Bilirubin Negative (Negative); Urine Blood Negative (Negative); Urine Color Yellow; Urine Glucose Negative (Negative); Urine Ketones Negative (Negative); Urine Nitrite Negative (Negative); Urine Protein Negative (Negative); Urine Specific Gravity 1.006 (1.010-1.030); Urine Urobilinogen Negative (Negative)
[2018-10-11 01:59] VITALS: BP 113/74
== END 2018-10-11 02:00 | disposition home or self-care (01) ==
LOC: ED 17:28
DX: R10.2 Pelvic and perineal pain (principal); N80.9 Endometriosis, unspecified; R10.9 Unspecified abdominal pain; F17.210 Nicotine dependence, cigarettes, uncomplicated; Z88.0 Allergy status to penicillin; Z88.6 Allergy status to analgesic agent; R10.32 Left lower quadrant pain
CPT/HCPCS: 36415; 76830; 80053; 81003; 84702; 85025; 86140; 96361; 96374; 96375; 99283; J2270; J2765